=== PATIENT | male | born 1955 | race Caucasian/White ===

== ENCOUNTER 2022-02-19 08:35 | Day surgery (SDC) | payer MEDICARE, BC ==
[~2022-02-19] VITALS: Ht 182.9 cm; Wt 114.3 kg
[2022-02-19 08:06] VITALS: BP 145/71
[2022-02-19 08:10] VITALS: BP 145/71
[~2022-02-19 08:35] MED LIST: ASPI81TA52 PO; normal saline 1000ml 1,000 ML IV PRN
[2022-02-19] MEDS ORDERED: LOSA100T57 PO (08:36)
[2022-02-19] MEDS ORDERED: SERT-434 PO (08:36)
[2022-02-19] MEDS ORDERED: OXYC1TAB17 PO (08:36)
[2022-02-19] MEDS ORDERED: FLO0.4C (08:36)
[2022-02-19] MEDS ORDERED: COLE625T13 (08:36)
[2022-02-19] MEDS ORDERED: METO-411 PO (08:36)
[2022-02-19] MEDS ORDERED: VERA360C2 PO (08:36)
[2022-02-19] MEDS ORDERED: MORP-92 PO (08:36)
[2022-02-19] MEDS ORDERED: METF-1203 PO (08:36)
[2022-02-19] MEDS ORDERED: LORA-269 (08:39)
[2022-02-19 08:53] LABS: BASOPHILS # (AUTO) 0.1 X10'3 (0-0.2); BASOPHILS % (AUTO) 0.9 % (0-1); EOSINOPHILS # (AUTO) 0.2 X10'3 (0-0.9); EOSINOPHILS % (AUTO) 3.4 % (0-6); HEMATOCRIT 30.5 % (42.0-52.0); HEMOGLOBIN 9.7 g/dl (14.0-17.9); LYMPHOCYTES # (AUTO) 0.8 X10'3 (1.1-4.8); LYMPHOCYTES % (AUTO) 11.4 % (21-51); MEAN CORPUSCULAR HEMOGLOBIN 24.2 PG (27.0-31.0); MEAN CORPUSCULAR HGB CONC 31.9 g/dL (33.0-36.5); MEAN CORPUSCULAR VOLUME 75.9 FL (78-98); MEAN PLATELET VOLUME 8.1 FL (7.4-10.4); MONOCYTES # (AUTO) 0.8 X10'3 (0-0.9); MONOCYTES % (AUTO) 11.5 % (2-12); NEUTROPHILS # (AUTO) 4.8 X10'3 (1.8-7.7); NEUTROPHILS % (AUTO) 72.8 % (42-75); PLATELET COUNT 360 X10'3 (140-440); RED BLOOD COUNT 4.02 X10'6 (4.70-6.10); RED CELL DISTRIBUTION WIDTH 16.1 % (11.5-14.5); WHITE BLOOD COUNT 6.6 X10'3 (4.5-11.0)
[2022-02-19] MEDS ORDERED: LIDOcaine 1% 30ml preserv. free vial SQ STA (10:01)
[2022-02-19 10:18] VITALS: BP 142/69
[2022-02-19] MEDS ORDERED: fentaNYL/PF 50MCG/1 ML 2ML syringe ONE (10:19)
[2022-02-19] MEDS ORDERED: gelatin sponge, absorbable (Gelfoam 12-7MM) sponge TP ONE (10:33)
[2022-02-19 10:40] VITALS: BP 147/70
[2022-02-19 10:45] VITALS: BP 138/72
== END 2022-02-19 11:03 | disposition home or self-care (01) ==
LOC: SSTAY O 08:35
PROVIDERS: ATTEND Radiology Vascular & Interventional Radiology
DX: M89.8X3 Other specified disorders of bone, forearm (principal); C40.1 Malignant neoplasm of short bones of upper limb; E11.9 Type 2 diabetes mellitus without complications; I10 Essential (primary) hypertension; Z85.46 Personal history of malignant neoplasm of prostate; E78.5 Hyperlipidemia, unspecified; F41.9 Anxiety disorder, unspecified; Z79.82 Long term (current) use of aspirin; Z82.49 Family history of ischemic heart disease and other diseases of the circulatory system; Z98.890 Other specified postprocedural states; Z79.899 Other long term (current) drug therapy
CPT/HCPCS: 20220; 36415; 76942; 82948; 85025; J7030; 20206; J3010